=== PATIENT | female | born 1965 | race Caucasian/White ===

== ENCOUNTER → 2020-02-09 | Outpatient (CLI) | payer OTHER ==
[~2020-02-09] MED LIST: LIDOCAINE 1%, 20ML ONE; SODIUM BICARBONATE 4.2%, 5ML ONE
== END | disposition home or self-care (01) ==
LOC: CFH 07:10
PROVIDERS: ATTEND Surgery
DX: N63.41 Unspecified lump in right breast, subareolar (principal); E78.5 Hyperlipidemia, unspecified; I10 Essential (primary) hypertension; Z80.0 Family history of malignant neoplasm of digestive organs; F17.210 Nicotine dependence, cigarettes, uncomplicated; Z98.890 Other specified postprocedural states; Z79.899 Other long term (current) drug therapy
CPT/HCPCS: 19285; 77065; J3490

== ENCOUNTER 2020-02-18 15:19 | Outpatient (CLI) | payer OTHER ==
[2020-02-18] MEDS ORDERED: AMLO-211 PO (16:03)
== END 2020-02-18 23:59 | disposition home or self-care (01) ==
LOC: STAR 15:19
PROVIDERS: ATTEND Anesthesiology
DX: Z20.828 Contact with and (suspected) exposure to other viral communicable diseases (principal)
CPT/HCPCS: U0003

== ENCOUNTER 2020-02-22 06:35 | Day surgery (SDC) | payer OTHER ==
[~2020-02-22] VITALS: Ht 162.6 cm; Wt 78.7 kg
[~2020-02-22 06:35] MED LIST changes: +AMLO-211 PO; +BUPIVACAINE/PF 0.5% ONE; +EPINEPHRINE 1 MG/ML, 1ML ONE; -LIDOCAINE 1%, 20ML ONE; -SODIUM BICARBONATE 4.2%, 5ML ONE
[2020-02-22] MEDS ORDERED: FENTANYL PF 250 MCG/5ML ONE (06:40)
[2020-02-22] MEDS ORDERED: MIDAZOLAM 1 MG/ML, 2ML ONE (06:40)
[2020-02-22 06:55] LABS: HCG UR SG 1.021 (1.003-1.030)
[2020-02-22] MEDS ORDERED: LACTATED RINGERS 1,000 ML IV SCH (07:00)
[2020-02-22] MEDS ORDERED: CHLORHEXIDINE 15 ML UDC MM ONE (07:00)
[2020-02-22] MEDS ORDERED: PROPOFOL 50 ML ONE ×2 (07:00→07:46)
[2020-02-22] MEDS ORDERED: HYDROmorphone 1 MG/ML, 1ML INJ IVPush PRN (07:30)
[2020-02-22] MEDS ORDERED: ACETAMINOPHEN 325 MG TABLET PO PRN (07:30)
[2020-02-22] MEDS ORDERED: hydrALAzine 20 MG/ML, 1ML IV PRN (07:30)
[2020-02-22] MEDS ORDERED: OXYcodone 5 MG/5 ML ORAL.SOL UDC PO PRN (07:30)
[2020-02-22] MEDS ORDERED: EPHEDRINE 50 MG/ML, 1ML IVPush PRN (07:30)
[2020-02-22] MEDS ORDERED: ONDANSETRON 2MG/ML, 2ML IVPush PRN (07:30)
[2020-02-22] MEDS ORDERED: LORazepam 2 MG/ML, 1ML IVPush PRN (07:30)
[2020-02-22] MEDS ORDERED: METHOCARBAMOL 1,000 MG in DEXTROSE 5% 100 ML IV PRN (07:30)
[2020-02-22] MEDS ORDERED: FENTANYL PF 100 MCG/2ML IV PRN (07:30)
[2020-02-22] MEDS ORDERED: LABETALOL 5MG/ML, 20ML IV PRN (07:30)
[2020-02-22] MEDS ORDERED: MEPERIDINE/PF 25MG/0.5ML IVPush PRN (07:30)
[2020-02-22] MEDS ORDERED: PROMETHAZINE 25 MG/ML, 1ML IVPush PRN (07:30)
[2020-02-22] MEDS ORDERED: ONDANSETRON 2MG/ML, 2ML ONE (10:19)
[2020-02-22] MEDS ORDERED: PROPOFOL 10 MG/ML, 20ML ONE (10:19)
[2020-02-22] MEDS ORDERED: CEFAZOLIN 1,000 MG ONE (10:19)
[2020-02-22] MEDS ORDERED: DEXAMETHASONE 4 MG/ML, 1ML ONE (10:19)
== END 2020-02-22 09:17 | disposition home or self-care (01) ==
LOC: OUT 06:35
PROVIDERS: ATTEND Surgery
DX: D24.1 Benign neoplasm of right breast (principal); I10 Essential (primary) hypertension; E78.5 Hyperlipidemia, unspecified; E66.9 Obesity, unspecified; Z79.899 Other long term (current) drug therapy; Z98.890 Other specified postprocedural states
CPT/HCPCS: 19125; 76098; 81025; 88305; J0171; J0690; J1100; J2250; J2405; J2704; J3010; J7120